=== PATIENT | female | born 1975 | race Caucasian/White ===

== ENCOUNTER → 2022-08-13 | Day surgery (SDC) | payer MEDICARE, MEDICAID ==
[~2022-08-13] MED LIST: Cyanocobalamin (Vitamin B12) 1,000 MCG/ML SDV IM ONE; Glycopyrrolate 0.2 MG/ML 2 ML SDV IVPUSH ONE; Lactated Ringers 1,000 ML IV SCH; MVI, Adult with Vitamin K 10 ML, Thiamine 200 MG, Zinc/Copper/Manganese/Selenium 1 ML i... IV ONE; Midazolam 1 MG/ML 2 ML SDV ONE; Propofol 200 MG/20 ML SDV ONE; Sodium Chloride 0.9% 1,000 ML IV SCH; fentaNYL 100 MCG/2 ML SDV ONE; ferumoxytoL 510 MG in Sodium Chloride 0.9% 100 ML IV ONE
== END ==
LOC: JP.SDS 06:00
PROVIDERS: ATTEND Surgery
DX: K31.A0 Gastric intestinal metaplasia, unspecified (principal); K21.9 Gastro-esophageal reflux disease without esophagitis; K20.80 Other esophagitis without bleeding; U07.1 COVID-19; E66.9 Obesity, unspecified; K31.6 Fistula of stomach and duodenum; Z79.899 Other long term (current) drug therapy; Z98.84 Bariatric surgery status
CPT/HCPCS: 43239; 88305; J2250; J2704; J3010; J3411; J3420; J3490; J7030; J7120; Q0138; U0002

== ENCOUNTER 2022-11-19 07:15 | Inpatient (IN) | payer MEDICARE, MEDICAID ==
[2022-11-19] MEDS ORDERED: Acetaminophen 500 MG Tab PO ONE (09:00)
[2022-11-19] MEDS ORDERED: Celecoxib 200 MG Cap PO ONE (09:00)
[2022-11-19] MEDS ORDERED: Gabapentin 300 MG Cap PO ONE (09:00)
[2022-11-19] MEDS ORDERED: Scopolamine 1.5 MG Transdermal Patch TOP ONE (09:00)
[2022-11-19] MEDS ORDERED: Bupivacaine 0.5% 50 ML MDV ONE (09:33)
[2022-11-19] MEDS ORDERED: Lidocaine 1% with EPINEPHrine 1:100,000 50 ML MDV ONE (09:33)
[2022-11-19] MEDS ORDERED: Meropenem 500 MG SDV ONE (09:33)
[2022-11-19 09:51] LABS: ESTIMATED GFR 71 mL/min (>60)
[2022-11-19] MEDS ORDERED: cefOXitin 2 GM in Sodium Chloride 0.9% 50 ML IV ONE (10:00)
[2022-11-19] MEDS ORDERED: Ketamine 15 MG in Sodium Chloride 0.9% 19.85 ML IV SCH (10:30)
[2022-11-19] MEDS ORDERED: Ketamine 500 MG/5 ML MDV IV SCH (10:30)
[2022-11-19] MEDS ORDERED: Dextrose 5%-Lactated Ringers 1,000 ML IV SCH ×2 (10:30→16:00)
[2022-11-19] MEDS ORDERED: diphenhydrAMINE 25 MG Cap PO PRN (10:50)
[2022-11-19] MEDS ORDERED: diphenhydrAMINE 50 MG/ML SDV IVPUSH PRN ×2 (10:50→16:00)
[2022-11-19] MEDS ORDERED: Naloxone 0.4 MG/ML SDV IVPUSH PRN (10:50)
[2022-11-19] MEDS ORDERED: Ondansetron 4 MG/2 ML SDV IVPUSH PRN ×2 (10:50→16:00)
[2022-11-19] MEDS ORDERED: Naloxone 0.4 MG/ML SDV IV PRN (11:00)
[2022-11-19] MEDS: HYDROmorphone/Normal Saline 6 MG/30 ML PCA Vial IV PRN (11:09)
[2022-11-19] MEDS ORDERED: Succinylcholine 200 MG/10 ML MDV ONE (11:24)
[2022-11-19] MEDS ORDERED: Propofol 200 MG/20 ML SDV ONE (11:24)
[2022-11-19] MEDS ORDERED: Rocuronium 50 MG/5 ML Vial ONE ×2 (11:24→13:11)
[2022-11-19] MEDS ORDERED: Dexamethasone 4 MG/ML SDV ONE (11:24)
[2022-11-19] MEDS ORDERED: fentaNYL 250 MCG/5 ML SDV ONE (11:24)
[2022-11-19] MEDS ORDERED: Ondansetron 4 MG/2 ML SDV ONE (11:24)
[2022-11-19] MEDS ORDERED: Glycopyrrolate 0.2 MG/ML 5 ML MDV ONE (11:24)
[2022-11-19] MEDS ORDERED: Neostigmine Methylsulfate 1 MG/ML 5 ML Syringe ONE (11:24)
[2022-11-19] MEDS ORDERED: Lactated Ringers 1,000 ML ONE (12:36)
[2022-11-19] MEDS ORDERED: fentaNYL 100 MCG/2 ML SDV ONE (13:41)
[2022-11-19] MEDS ORDERED: Cyclobenzaprine 10 MG Tab PO PRN (15:48)
[2022-11-19] MEDS ORDERED: Acetaminophen 500 MG Tab PO PRN (16:00)
[2022-11-19] MEDS ORDERED: Metoclopramide 10 MG/2 ML SDV IVPUSH PRN (16:00)
[2022-11-19] MEDS ORDERED: Glucagon,Human Recombinant 1 MG Vial IM PRN (16:00)
[2022-11-19] MEDS ORDERED: hydrOXYzine HCL 100 MG/2 ML SDV IM PRN (16:00)
[2022-11-19] MEDS ORDERED: Labetalol 20 MG/4 ML Syringe IVPUSH PRN (16:00)
[2022-11-19] MEDS ORDERED: 50% Dextrose in Water 50 ML Syringe IVPUSH PRN (16:00)
[2022-11-19] MEDS: SCOPOLAMINE PATCH CHECK TOP SCH (16:46)
[2022-11-19] MEDS: Insulin Lispro 100 Unit/ML 3 ML KwikPen SUBCUT SCH ×2 (16:53→21:28)
[2022-11-19] MEDS: Pantoprazole 40 MG Vial IVPUSH SCH (16:55)
[2022-11-19] MEDS: Acetaminophen 500 MG Tab PO SCH (16:55)
[2022-11-19] MEDS: MVI, Adult with Vitamin K 10 ML, Thiamine 200 MG, Zinc/Copper/Manganese/Selenium 1 ML i... IV SCH ×4 (17:34)
[2022-11-19] MEDS: cefOXitin 2 GM in Sodium Chloride 0.9% 50 ML IV SCH (17:35)
[2022-11-19] MEDS: Heparin Sodium 5,000 Units/ML Vial SUBCUT SCH (19:39)
[2022-11-19] MEDS: Oxybutynin 5 MG Tab PO SCH (21:32)
[2022-11-19] MEDS: Gabapentin 300 MG Cap PO SCH (21:33)
[2022-11-20] MEDS: Acetaminophen 500 MG Tab PO SCH ×4 (00:03→23:09)
[2022-11-20] MEDS: cefOXitin 2 GM in Sodium Chloride 0.9% 50 ML IV SCH ×5 (00:04→23:09)
[2022-11-20] MEDS: Lactated Ringers 1,000 ML IV SCH ×2 (00:06→07:03)
[2022-11-20] MEDS ORDERED: Iopamidol 612 MG/ML 50 ML SDV PO STA (03:21)
[2022-11-20] MEDS: Insulin Lispro 100 Unit/ML 3 ML KwikPen SUBCUT SCH ×4 (05:50→21:47)
[2022-11-20] MEDS ORDERED: Ketorolac 30 MG/ML SDV IM ONE (07:02)
[2022-11-20] MEDS: Heparin Sodium 5,000 Units/ML Vial SUBCUT SCH ×2 (08:23→20:24)
[2022-11-20] MEDS: Loratadine 10 MG Tab PO SCH (08:23)
[2022-11-20] MEDS: Oxybutynin 5 MG Tab PO SCH ×2 (08:23→20:25)
[2022-11-20] MEDS: SCOPOLAMINE PATCH CHECK TOP SCH (08:24)
[2022-11-20] MEDS: HYDROmorphone/Normal Saline 6 MG/30 ML PCA Vial IV PRN (10:38)
[2022-11-20] MEDS ORDERED: Lactated Ringers 500 ML IV ONE (14:15)
[2022-11-20] MEDS: Pantoprazole 40 MG Vial IVPUSH SCH (16:38)
[2022-11-20] MEDS: MVI, Adult with Vitamin K 10 ML, Thiamine 200 MG, Zinc/Copper/Manganese/Selenium 1 ML i... IV SCH ×4 (18:11)
[2022-11-20] MEDS: Gabapentin 300 MG Cap PO SCH (20:24)
[2022-11-20] MEDS: Celecoxib 200 MG Cap PO SCH (20:25)
[2022-11-20] MEDS: Ondansetron 4 MG Tab.DIS PO PRN (23:09)
[2022-11-21] MEDS: Lactated Ringers 1,000 ML IV SCH ×2 (01:37→08:46)
[2022-11-21] MEDS: Insulin Lispro 100 Unit/ML 3 ML KwikPen SUBCUT SCH ×4 (03:21→21:11)
[2022-11-21 04:43] LABS: ESTIMATED GFR 80 mL/min (>60)
[2022-11-21] MEDS: HYDROmorphone 2 MG Tab PO PRN ×2 (08:37→14:43)
[2022-11-21] MEDS: Heparin Sodium 5,000 Units/ML Vial SUBCUT SCH ×2 (08:37→19:25)
[2022-11-21] MEDS: Celecoxib 200 MG Cap PO SCH (08:38)
[2022-11-21] MEDS: Bisacodyl 5 MG Tab PO SCH ×2 (08:38→21:10)
[2022-11-21] MEDS: Docusate Sodium 100 MG Cap PO SCH ×2 (08:38→21:10)
[2022-11-21] MEDS: Oxybutynin 5 MG Tab PO SCH ×2 (08:38→21:11)
[2022-11-21] MEDS: Loratadine 10 MG Tab PO SCH (08:38)
[2022-11-21] MEDS: Acetaminophen 500 MG Tab PO SCH ×2 (08:38→16:38)
[2022-11-21] MEDS: SCOPOLAMINE PATCH CHECK TOP SCH (08:39)
[2022-11-21] MEDS: Ondansetron 4 MG Tab.DIS PO PRN (08:46)
[2022-11-21] MEDS ORDERED: Cyanocobalamin (Vitamin B12) 1,000 MCG/ML SDV IM ONE (09:00)
[2022-11-21] MEDS ORDERED: Ketorolac 30 MG/ML SDV IM ONE (13:15)
[2022-11-21] MEDS: Magnesium Sulfate/Water 2 GM in Premix Bag 1 BAG IV SCH ×2 (13:51→19:25)
[2022-11-21] MEDS ORDERED: Pantoprazole 40 MG Delayed-Release Granules 1 Packet PO SCH (16:30)
[2022-11-21] MEDS: Gabapentin 300 MG Cap PO SCH (21:11)
[2022-11-22] MEDS: Acetaminophen 500 MG Tab PO SCH ×2 (00:24→07:24)
[2022-11-22] MEDS: HYDROmorphone 2 MG Tab PO PRN ×2 (00:29→07:22)
[2022-11-22] MEDS: Insulin Lispro 100 Unit/ML 3 ML KwikPen SUBCUT SCH ×2 (05:11→10:27)
[2022-11-22] MEDS: Heparin Sodium 5,000 Units/ML Vial SUBCUT SCH (07:24)
[2022-11-22] MEDS ORDERED: Magnesium Oxide 400 MG Tab PO SCH (09:00)
[2022-11-22] MEDS: Celecoxib 200 MG Cap PO SCH (10:25)
[2022-11-22] MEDS: Docusate Sodium 100 MG Cap PO SCH (10:26)
[2022-11-22] MEDS: Bisacodyl 5 MG Tab PO SCH (10:26)
[2022-11-22] MEDS: Loratadine 10 MG Tab PO SCH (10:26)
[2022-11-22] MEDS: Oxybutynin 5 MG Tab PO SCH (10:26)
== END 2022-11-22 10:40 | disposition home or self-care (01) | DRG 327 ==
LOC: JP.SDSSCHI 08:33 → JP.MS 08:34 → JP.SDSSCHI 08:35 → JP.MS 14:50
PROVIDERS: ADMIT Surgery; ATTEND Surgery
PROC: 0D160ZA Bypass Stomach to Jejunum, Open Approach (ICD-10-PCS; principal; 2022-11-19)
PROC: 0WQF0ZZ Repair Abdominal Wall, Open Approach (ICD-10-PCS; 2022-11-19)
PROC: 0WQF0ZZ Repair Abdominal Wall, Open Approach (ICD-10-PCS; 2022-11-19)
PROC: 0DB80ZZ Excision of Small Intestine, Open Approach (ICD-10-PCS; 2022-11-19)
PROC: 0FB20ZZ Excision of Left Lobe Liver, Open Approach (ICD-10-PCS; 2022-11-19)
PROC: 0DQ80ZZ Repair Small Intestine, Open Approach (ICD-10-PCS; 2022-11-19)
DX: K95.89 Other complications of other bariatric procedure (principal); K31.6 Fistula of stomach and duodenum; K42.0 Umbilical hernia with obstruction, without gangrene; K43.0 Incisional hernia with obstruction, without gangrene; K55.9 Vascular disorder of intestine, unspecified; K31.4 Gastric diverticulum; F31.9 Bipolar disorder, unspecified; G89.29 Other chronic pain; M54.9 Dorsalgia, unspecified; E11.9 Type 2 diabetes mellitus without complications; E78.00 Pure hypercholesterolemia, unspecified; E66.01 Morbid (severe) obesity due to excess calories; Z87.891 Personal history of nicotine dependence; Z98.84 Bariatric surgery status; Z79.899 Other long term (current) drug therapy; Z91.018 Allergy to other foods; Z88.5 Allergy status to narcotic agent
CPT/HCPCS: 36415; 74240; 74240-26; 80053; 82728; 82947; 83735; 84100; 84703; 85025; 85027; 86850; 86900; 86901; 88302; 88307; 93005; A9270-GY; C9113; J0171; J0330; J0694; J1100; J1170; J1644; J1815; J1885; J2020; J2185; J2405; J2704; J2710; J2795; J3010; J3410; J3411; J3420; J3475; J3490; J7120; J7121; Q0162

== ENCOUNTER 2022-12-16 06:47 | Day surgery (SDC) | payer MEDICARE, MEDICAID ==
[2022-12-16] MEDS ORDERED: fentaNYL 50 MCG/ML SDV ONE (07:15)
[2022-12-16] MEDS ORDERED: Midazolam 1 MG/ML 2 ML SDV ONE (07:15)
[2022-12-16] MEDS ORDERED: Lactated Ringers 1,000 ML IV SCH ×2 (07:15)
[2022-12-16] MEDS ORDERED: Propofol 200 MG/20 ML SDV ONE (07:15)
[2022-12-16] MEDS ORDERED: Dexamethasone 4 MG/ML SDV ONE (08:15)
[2022-12-16] MEDS ORDERED: Glycopyrrolate 0.2 MG/ML 2 ML SDV IVPUSH ONE (08:30)
[2022-12-16] MEDS ORDERED: MVI, Adult with Vitamin K 10 ML, Thiamine 200 MG, Zinc/Copper/Manganese/Selenium 1 ML i... IV ONE ×4 (08:30)
[2022-12-16] MEDS ORDERED: Cyanocobalamin (Vitamin B12) 1,000 MCG/ML SDV IM ONE (09:00)
== END 2022-12-16 11:07 | disposition home or self-care (01) ==
LOC: JP.SDS 06:47
PROVIDERS: ATTEND Surgery
DX: K94.23 Gastrostomy malfunction (principal); F41.9 Anxiety disorder, unspecified; F31.9 Bipolar disorder, unspecified; E66.9 Obesity, unspecified; E11.9 Type 2 diabetes mellitus without complications; K21.9 Gastro-esophageal reflux disease without esophagitis; K90.9 Intestinal malabsorption, unspecified; Z79.899 Other long term (current) drug therapy; Z88.6 Allergy status to analgesic agent; Z68.41 Body mass index [BMI] 40.0-44.9, adult
CPT/HCPCS: 43245; C1726; J1100; J2250; J2704; J3010; J3411; J3420; J3490; J7120

== ENCOUNTER 2023-01-03 07:45 | Day surgery (SDC) | payer MEDICARE, MEDICAID ==
[2023-01-03] MEDS ORDERED: Lactated Ringers 1,000 ML IV SCH (09:15)
[2023-01-03] MEDS ORDERED: Cyanocobalamin (Vitamin B12) 1,000 MCG/ML SDV IM ONE (09:15)
[2023-01-03] MEDS ORDERED: Propofol 200 MG/20 ML SDV ONE (09:17)
[2023-01-03] MEDS ORDERED: fentaNYL 50 MCG/ML SDV ONE (09:17)
[2023-01-03] MEDS ORDERED: Midazolam 1 MG/ML 2 ML SDV ONE (09:17)
[2023-01-03] MEDS ORDERED: Glycopyrrolate 0.2 MG/ML 2 ML SDV IVPUSH ONE (10:00)
[2023-01-03] MEDS ORDERED: MVI, Adult with Vitamin K 10 ML, Thiamine 200 MG, Zinc/Copper/Manganese/Selenium 1 ML i... IV ONE ×4 (10:15)
[2023-01-03] MEDS ORDERED: Dexamethasone 4 MG/ML SDV ONE (10:16)
== END 2023-01-03 12:14 | disposition home or self-care (01) ==
LOC: JP.SDS 07:45
PROVIDERS: ATTEND Surgery
DX: K91.89 Other postprocedural complications and disorders of digestive system (principal); K22.2 Esophageal obstruction; E78.5 Hyperlipidemia, unspecified; K21.9 Gastro-esophageal reflux disease without esophagitis; F43.10 Post-traumatic stress disorder, unspecified; F31.9 Bipolar disorder, unspecified; E11.9 Type 2 diabetes mellitus without complications; E66.01 Morbid (severe) obesity due to excess calories; Z98.0 Intestinal bypass and anastomosis status; Z68.41 Body mass index [BMI] 40.0-44.9, adult
CPT/HCPCS: 43249; C1726; J1100; J2250; J2704; J3010; J3411; J3420; J3490; J7120

== ENCOUNTER 2023-02-10 07:29 | Day surgery (SDC) | payer MEDICARE, MEDICAID ==
[2023-02-10] MEDS ORDERED: fentaNYL 50 MCG/ML SDV ONE (07:41)
[2023-02-10] MEDS ORDERED: Propofol 200 MG/20 ML SDV ONE (07:41)
[2023-02-10] MEDS ORDERED: Midazolam 1 MG/ML 2 ML SDV ONE (07:41)
[2023-02-10] MEDS ORDERED: Lactated Ringers 1,000 ML IV SCH (08:00)
[2023-02-10] MEDS ORDERED: Cyanocobalamin (Vitamin B12) 1,000 MCG/ML SDV IM ONE (08:00)
[2023-02-10] MEDS ORDERED: Glycopyrrolate 0.2 MG/ML 2 ML SDV IVPUSH ONE (08:30)
[2023-02-10] MEDS ORDERED: MVI, Adult with Vitamin K 10 ML, Thiamine 200 MG, Zinc/Copper/Manganese/Selenium 1 ML i... IV ONE ×4 (09:00)
[2023-02-10] MEDS ORDERED: Dexamethasone 4 MG/ML SDV ONE (09:14)
[2023-02-10] MEDS ORDERED: Meropenem 500 MG SDV ONE (09:18)
[2023-02-10] MEDS ORDERED: Sodium Chloride 0.9% 20 ML ONE (09:18)
== END 2023-02-10 11:14 | disposition home or self-care (01) ==
LOC: JP.SDS 07:29
PROVIDERS: ATTEND Surgery
DX: K94.23 Gastrostomy malfunction (principal); R13.10 Dysphagia, unspecified; K21.9 Gastro-esophageal reflux disease without esophagitis; E11.9 Type 2 diabetes mellitus without complications; E66.9 Obesity, unspecified; F31.9 Bipolar disorder, unspecified; Z68.41 Body mass index [BMI] 40.0-44.9, adult; Z79.899 Other long term (current) drug therapy; Z88.6 Allergy status to analgesic agent; Z91.018 Allergy to other foods
CPT/HCPCS: 43233; J1100; J2185; J2250; J2704; J3010; J3411; J3420; J3490; J7120